=== PATIENT | female | born 1940 | race African-American/Black ===

== ENCOUNTER 2019-12-16 09:35 | Inpatient (IN) ==
[2019-12-16] MEDS ORDERED: Nitroglycerin 0.4 MG TAB.SUBL SL PRN (15:43)
[2019-12-16] MEDS: ALPRAZolam 1 MG TABLET PO SCH (20:24)
[2019-12-16] MEDS: Venlafaxine XR (24 HR) 150 MG CAP.ER.24H PO SCH (20:24)
[2019-12-16] MEDS: Mirtazapine 15 MG TABLET PO SCH (20:24)
[2019-12-16] MEDS: hydrOXYzine pamoate 25 MG CAPSULE PO PRN (20:24)
[2019-12-16] MEDS: Apixaban 5 MG TABLET PO SCH (20:24)
[2019-12-16] MEDS: Nystatin POWDER 30 GM BOTTLE TP SCH (20:58)
[2019-12-17 05:43] LABS: Basophils # 0.1 K/mcL (0.0-0.2); Basophils % 0.5 %; Eosinophils # 1.1 K/mcL (0.0-0.6); Eosinophils % 8.9 %; Hemoglobin 8.2 g/dL (11.5-15.4); Immature Granulocytes % 0.8 % (0-4); Lymphocytes # 1.9 K/mcL (0.6-4.6); Lymphocytes % 14.7 %; Mean Corpuscular HGB Conc 31.5 g/dL (31.6-35.5); Mean Corpuscular Hemoglobin 27.2 pg (28.0-33.3); Mean Corpuscular Volume 86.4 fL (83.0-100.0); Mean Platelet Volume 9.9 fL (9.4-12.4); Monocytes # 1.3 K/mcL (0.0-1.3); Monocytes % 10.4 %; Neutrophils # 8.3 K/mcL (1.6-8.9); Platelet Count 529 K/mcL (140-400); Red Blood Count 3.01 M/mcL (3.82-4.97); Red Cell Distribution Width 16.9 % (11.5-14.5); Segmented Neutrophils % 64.7 %; White Blood Count 12.8 K/mcL (4.3-11.1)
[2019-12-17 06:54] LABS: Calcium 7.9 mg/dL (8.6-10.3); Potassium 3.6 mEq/L (3.5-5.1)
[2019-12-17] MEDS: ALPRAZolam 0.5 MG TABLET PO SCH (09:17)
[2019-12-17] MEDS: Vitamin B Complex/Vit C/Vit E 1 EACH TABLET PO SCH (09:17)
[2019-12-17] MEDS: Aspirin 81 MG TAB.CHEW PO SCH (09:17)
[2019-12-17] MEDS: Vitamin E 200 UNIT (90MG) CAPSULE PO SCH (09:17)
[2019-12-17] MEDS: *HR* Amiodarone 200 MG TABLET PO SCH (09:17)
[2019-12-17] MEDS: Venlafaxine XR (24 HR) 150 MG CAP.ER.24H PO SCH ×2 (09:17→21:07)
[2019-12-17] MEDS: Nystatin POWDER 30 GM BOTTLE TP SCH ×2 (09:18→21:10)
[2019-12-17] MEDS: Apixaban 5 MG TABLET PO SCH ×2 (09:18→21:08)
[2019-12-17] MEDS: allopurinoL 100 MG TABLET PO SCH (09:18)
[2019-12-17] MEDS: allopurinoL 300 MG TABLET PO SCH (09:18)
[2019-12-17] MEDS: Cholecalciferol (D-3) 1,000 UNIT (25MCG) TABLET PO SCH (09:23)
[2019-12-17] MEDS: *HR* OxyCODONE/APAP 5/325 TABLET PO PRN ×2 (10:58→21:07)
[2019-12-17] MEDS: DAPTOmycin 500 MG in 0.9 % Sodium Chloride 100 ML IVPB SCH (15:42)
[2019-12-17] MEDS: Mirtazapine 15 MG TABLET PO SCH (21:07)
[2019-12-17] MEDS: hydrOXYzine pamoate 25 MG CAPSULE PO PRN (21:07)
[2019-12-17] MEDS: ALPRAZolam 1 MG TABLET PO SCH (21:08)
[2019-12-17] MEDS: Furosemide 40 MG TABLET PO PRN (21:08)
[2019-12-18] MEDS: Vitamin E 200 UNIT (90MG) CAPSULE PO SCH (08:51)
[2019-12-18] MEDS: Venlafaxine XR (24 HR) 150 MG CAP.ER.24H PO SCH ×2 (08:52→20:29)
[2019-12-18] MEDS: allopurinoL 100 MG TABLET PO SCH (08:52)
[2019-12-18] MEDS: *HR* Amiodarone 200 MG TABLET PO SCH (08:52)
[2019-12-18] MEDS: Aspirin 81 MG TAB.CHEW PO SCH (08:52)
[2019-12-18] MEDS: Apixaban 5 MG TABLET PO SCH ×2 (08:52→20:29)
[2019-12-18] MEDS: allopurinoL 300 MG TABLET PO SCH (08:52)
[2019-12-18] MEDS: Vitamin B Complex/Vit C/Vit E 1 EACH TABLET PO SCH (08:53)
[2019-12-18] MEDS: Cholecalciferol (D-3) 1,000 UNIT (25MCG) TABLET PO SCH (08:53)
[2019-12-18] MEDS: ALPRAZolam 0.5 MG TABLET PO SCH (08:54)
[2019-12-18] MEDS: Nystatin POWDER 30 GM BOTTLE TP SCH ×2 (08:56→20:29)
[2019-12-18] MEDS: DAPTOmycin 500 MG in 0.9 % Sodium Chloride 100 ML IVPB SCH (14:36)
[2019-12-18] MEDS: Furosemide 40 MG TABLET PO PRN (16:06)
[2019-12-18] MEDS: *HR* OxyCODONE/APAP 5/325 TABLET PO PRN (16:06)
[2019-12-18] MEDS: Mirtazapine 15 MG TABLET PO SCH (20:28)
[2019-12-18] MEDS: Acetaminophen 325 MG TABLET PO PRN (20:28)
[2019-12-18] MEDS: ALPRAZolam 1 MG TABLET PO SCH (20:29)
[2019-12-19] MEDS: Venlafaxine XR (24 HR) 150 MG CAP.ER.24H PO SCH ×2 (08:18→21:04)
[2019-12-19] MEDS: *HR* Amiodarone 200 MG TABLET PO SCH (08:18)
[2019-12-19] MEDS: ALPRAZolam 0.5 MG TABLET PO SCH (08:18)
[2019-12-19] MEDS: Aspirin 81 MG TAB.CHEW PO SCH (08:19)
[2019-12-19] MEDS: Cholecalciferol (D-3) 1,000 UNIT (25MCG) TABLET PO SCH (08:19)
[2019-12-19] MEDS: allopurinoL 300 MG TABLET PO SCH (08:19)
[2019-12-19] MEDS: Vitamin E 200 UNIT (90MG) CAPSULE PO SCH (08:19)
[2019-12-19] MEDS: Vitamin B Complex/Vit C/Vit E 1 EACH TABLET PO SCH (08:19)
[2019-12-19] MEDS: Apixaban 5 MG TABLET PO SCH ×2 (08:19→21:04)
[2019-12-19] MEDS: allopurinoL 100 MG TABLET PO SCH (08:19)
[2019-12-19] MEDS: Nystatin POWDER 30 GM BOTTLE TP SCH ×2 (08:25→21:45)
[2019-12-19 09:10] LABS: Hematocrit 27.7 % (35.3-44.9); Hemoglobin 8.5 g/dL (11.5-15.4); Mean Corpuscular HGB Conc 30.7 g/dL (31.6-35.5); Mean Corpuscular Volume 87.9 fL (83.0-100.0); Mean Platelet Volume 9.7 fL (9.4-12.4); Platelet Count 507 K/mcL (140-400); Red Blood Count 3.15 M/mcL (3.82-4.97); Red Cell Distribution Width 17.2 % (11.5-14.5); White Blood Count 11.1 K/mcL (4.3-11.1)
[2019-12-19 09:30] LABS: Calcium 8.3 mg/dL (8.6-10.3); Potassium 3.5 mEq/L (3.5-5.1)
[2019-12-19] MEDS: DAPTOmycin 500 MG in 0.9 % Sodium Chloride 100 ML IVPB SCH (14:21)
[2019-12-19] MEDS: Furosemide 20 MG TABLET PO SCH (16:27)
[2019-12-19] MEDS: Mirtazapine 15 MG TABLET PO SCH (21:04)
[2019-12-19] MEDS: ALPRAZolam 1 MG TABLET PO SCH (21:04)
[2019-12-19] MEDS: *HR* OxyCODONE/APAP 5/325 TABLET PO PRN (21:07)
[2019-12-20] MEDS: Venlafaxine XR (24 HR) 150 MG CAP.ER.24H PO SCH ×2 (08:10→20:48)
[2019-12-20] MEDS: lisinopriL 20 MG TABLET PO SCH (08:10)
[2019-12-20] MEDS: Vitamin B Complex/Vit C/Vit E 1 EACH TABLET PO SCH (08:10)
[2019-12-20] MEDS: ALPRAZolam 0.5 MG TABLET PO SCH (08:10)
[2019-12-20] MEDS: Vitamin E 200 UNIT (90MG) CAPSULE PO SCH (08:10)
[2019-12-20] MEDS: Apixaban 5 MG TABLET PO SCH ×2 (08:10→20:49)
[2019-12-20] MEDS: allopurinoL 300 MG TABLET PO SCH (08:10)
[2019-12-20] MEDS: Cholecalciferol (D-3) 1,000 UNIT (25MCG) TABLET PO SCH (08:10)
[2019-12-20] MEDS: *HR* Amiodarone 200 MG TABLET PO SCH (08:11)
[2019-12-20] MEDS: allopurinoL 100 MG TABLET PO SCH (08:11)
[2019-12-20] MEDS: Furosemide 20 MG TABLET PO SCH ×2 (08:11→16:09)
[2019-12-20] MEDS: Aspirin 81 MG TAB.CHEW PO SCH (08:11)
[2019-12-20] MEDS: Nystatin POWDER 30 GM BOTTLE TP SCH ×2 (08:13→20:49)
[2019-12-20 12:57] LABS: Creatine Kinase 62 Units/L (30-223)
[2019-12-20] MEDS: DAPTOmycin 500 MG in 0.9 % Sodium Chloride 100 ML IVPB SCH (14:28)
[2019-12-20] MEDS: *HR* OxyCODONE/APAP 5/325 TABLET PO PRN (14:34)
[2019-12-20 17:36] LABS: C-Reactive Protein 57 mg/L (Less than 10)
[2019-12-20] MEDS: ALPRAZolam 1 MG TABLET PO SCH (20:49)
[2019-12-20] MEDS: hydrOXYzine pamoate 25 MG CAPSULE PO PRN (20:49)
[2019-12-20] MEDS: Mirtazapine 15 MG TABLET PO SCH (20:49)
[2019-12-21] MEDS: Aspirin 81 MG TAB.CHEW PO SCH (08:20)
[2019-12-21] MEDS: Apixaban 5 MG TABLET PO SCH ×2 (08:20→21:22)
[2019-12-21] MEDS: allopurinoL 100 MG TABLET PO SCH (08:20)
[2019-12-21] MEDS: Venlafaxine XR (24 HR) 150 MG CAP.ER.24H PO SCH ×2 (08:20→21:21)
[2019-12-21] MEDS: Vitamin B Complex/Vit C/Vit E 1 EACH TABLET PO SCH (08:20)
[2019-12-21] MEDS: lisinopriL 20 MG TABLET PO SCH (08:20)
[2019-12-21] MEDS: ALPRAZolam 0.5 MG TABLET PO SCH (08:20)
[2019-12-21] MEDS: Cholecalciferol (D-3) 1,000 UNIT (25MCG) TABLET PO SCH (08:21)
[2019-12-21] MEDS: Nystatin POWDER 30 GM BOTTLE TP SCH ×2 (08:21→21:29)
[2019-12-21] MEDS: *HR* Amiodarone 200 MG TABLET PO SCH (08:21)
[2019-12-21] MEDS: Furosemide 20 MG TABLET PO SCH ×2 (08:21→16:12)
[2019-12-21] MEDS: allopurinoL 300 MG TABLET PO SCH (08:21)
[2019-12-21] MEDS: Vitamin E 200 UNIT (90MG) CAPSULE PO SCH (08:21)
[2019-12-21 14:11] LABS: Adenovirus Not Detected (Not Detect); Coronavirus 229E Not Detected (Not Detect); Coronavirus HKU1 Not Detected (Not Detect)
[2019-12-21 14:12] LABS: Bordetella Pertussis Not Detected (Not Detect); Chlamydophila pneumoniae Not Detected (Not Detect); Coronavirus NL63 Not Detected (Not Detect); Coronavirus OC43 Not Detected (Not Detect); Human Metapneumovirus Not Detected (Not Detect); Human Rhinovirus/Enterovirus Not Detected (Not Detect); Influenza A Subtype 2009 H1 Not Detected (Not Detect); Influenza B Not Detected (Not Detect); Mycoplasma pneumoniae Not Detected (Not Detect); Parainfluenza Virus 1 Not Detected (Not Detect); Parainfluenza Virus 2 Not Detected (Not Detect); Parainfluenza Virus 3 Not Detected (Not Detect); Parainfluenza Virus 4 Not Detected (Not Detect); Respiratory Syncytial Virus Not Detected (Not Detect); SARS-CoV-2 Not Detected (Not Detect)
[2019-12-21] MEDS: DAPTOmycin 500 MG in 0.9 % Sodium Chloride 100 ML IVPB SCH (14:22)
[2019-12-21] MEDS: ALPRAZolam 1 MG TABLET PO SCH (21:22)
[2019-12-21] MEDS: Mirtazapine 15 MG TABLET PO SCH (21:22)
[2019-12-22] MEDS: *HR* OxyCODONE/APAP 5/325 TABLET PO PRN ×2 (01:44→21:02)
[2019-12-22] MEDS: Vitamin E 200 UNIT (90MG) CAPSULE PO SCH (08:54)
[2019-12-22] MEDS: Aspirin 81 MG TAB.CHEW PO SCH (08:55)
[2019-12-22] MEDS: allopurinoL 300 MG TABLET PO SCH (08:55)
[2019-12-22] MEDS: Cholecalciferol (D-3) 1,000 UNIT (25MCG) TABLET PO SCH (08:55)
[2019-12-22] MEDS: ALPRAZolam 0.5 MG TABLET PO SCH (08:55)
[2019-12-22] MEDS: Furosemide 20 MG TABLET PO SCH ×2 (08:55→16:34)
[2019-12-22] MEDS: Venlafaxine XR (24 HR) 150 MG CAP.ER.24H PO SCH ×2 (08:55→20:34)
[2019-12-22] MEDS: lisinopriL 20 MG TABLET PO SCH (08:55)
[2019-12-22] MEDS: Vitamin B Complex/Vit C/Vit E 1 EACH TABLET PO SCH (08:55)
[2019-12-22] MEDS: allopurinoL 100 MG TABLET PO SCH (08:55)
[2019-12-22] MEDS: *HR* Amiodarone 200 MG TABLET PO SCH (08:55)
[2019-12-22] MEDS: Apixaban 5 MG TABLET PO SCH ×2 (08:55→20:34)
[2019-12-22] MEDS: Nystatin POWDER 30 GM BOTTLE TP SCH ×2 (08:56→20:35)
[2019-12-22] MEDS: DAPTOmycin 500 MG in 0.9 % Sodium Chloride 100 ML IVPB SCH (16:33)
[2019-12-22] MEDS: Mirtazapine 15 MG TABLET PO SCH (20:34)
[2019-12-22] MEDS: ALPRAZolam 1 MG TABLET PO SCH (20:34)
[2019-12-23] MEDS: Aspirin 81 MG TAB.CHEW PO SCH (08:02)
[2019-12-23] MEDS: allopurinoL 100 MG TABLET PO SCH (08:02)
[2019-12-23] MEDS: lisinopriL 20 MG TABLET PO SCH (08:02)
[2019-12-23] MEDS: Vitamin B Complex/Vit C/Vit E 1 EACH TABLET PO SCH (08:02)
[2019-12-23] MEDS: Cholecalciferol (D-3) 1,000 UNIT (25MCG) TABLET PO SCH (08:02)
[2019-12-23] MEDS: allopurinoL 300 MG TABLET PO SCH (08:02)
[2019-12-23] MEDS: Vitamin E 200 UNIT (90MG) CAPSULE PO SCH (08:02)
[2019-12-23] MEDS: *HR* Amiodarone 200 MG TABLET PO SCH (08:03)
[2019-12-23] MEDS: Nystatin POWDER 30 GM BOTTLE TP SCH ×2 (08:03→20:44)
[2019-12-23] MEDS: ALPRAZolam 0.5 MG TABLET PO SCH (08:03)
[2019-12-23] MEDS: Furosemide 20 MG TABLET PO SCH ×2 (08:03→16:52)
[2019-12-23] MEDS: Venlafaxine XR (24 HR) 150 MG CAP.ER.24H PO SCH ×2 (08:03→20:43)
[2019-12-23] MEDS: Apixaban 5 MG TABLET PO SCH ×2 (08:03→20:44)
[2019-12-23] MEDS: DAPTOmycin 500 MG in 0.9 % Sodium Chloride 100 ML IVPB SCH (15:14)
[2019-12-23] MEDS: Mirtazapine 15 MG TABLET PO SCH (20:44)
[2019-12-23] MEDS: ALPRAZolam 1 MG TABLET PO SCH (20:44)
[2019-12-24] MEDS: *HR* OxyCODONE/APAP 5/325 TABLET PO PRN (02:09)
[2019-12-24] MEDS: Vitamin E 200 UNIT (90MG) CAPSULE PO SCH (07:40)
[2019-12-24] MEDS: Vitamin B Complex/Vit C/Vit E 1 EACH TABLET PO SCH (07:40)
[2019-12-24] MEDS: Aspirin 81 MG TAB.CHEW PO SCH (07:40)
[2019-12-24] MEDS: *HR* Amiodarone 200 MG TABLET PO SCH (07:40)
[2019-12-24] MEDS: allopurinoL 300 MG TABLET PO SCH (07:40)
[2019-12-24] MEDS: Apixaban 5 MG TABLET PO SCH ×2 (07:41→20:44)
[2019-12-24] MEDS: Cholecalciferol (D-3) 1,000 UNIT (25MCG) TABLET PO SCH (07:41)
[2019-12-24] MEDS: ALPRAZolam 0.5 MG TABLET PO SCH (07:41)
[2019-12-24] MEDS: lisinopriL 20 MG TABLET PO SCH (07:41)
[2019-12-24] MEDS: allopurinoL 100 MG TABLET PO SCH (07:41)
[2019-12-24] MEDS: Venlafaxine XR (24 HR) 150 MG CAP.ER.24H PO SCH ×2 (07:41→20:44)
[2019-12-24] MEDS: Furosemide 20 MG TABLET PO SCH ×2 (07:42→16:03)
[2019-12-24] MEDS: Nystatin POWDER 30 GM BOTTLE TP SCH ×2 (07:42→20:45)
[2019-12-24] MEDS: DAPTOmycin 500 MG in 0.9 % Sodium Chloride 100 ML IVPB SCH (16:03)
[2019-12-24] MEDS: Acetaminophen 325 MG TABLET PO PRN (17:49)
[2019-12-24] MEDS: ALPRAZolam 1 MG TABLET PO SCH (20:44)
[2019-12-24] MEDS: Mirtazapine 15 MG TABLET PO SCH (20:44)
[2019-12-25] MEDS: ALPRAZolam 0.5 MG TABLET PO SCH (08:40)
[2019-12-25] MEDS: Vitamin B Complex/Vit C/Vit E 1 EACH TABLET PO SCH (08:41)
[2019-12-25] MEDS: Vitamin E 200 UNIT (90MG) CAPSULE PO SCH (08:41)
[2019-12-25] MEDS: Furosemide 20 MG TABLET PO SCH ×2 (08:41→15:54)
[2019-12-25] MEDS: Venlafaxine XR (24 HR) 150 MG CAP.ER.24H PO SCH ×2 (08:41→21:10)
[2019-12-25] MEDS: lisinopriL 20 MG TABLET PO SCH (08:41)
[2019-12-25] MEDS: Apixaban 5 MG TABLET PO SCH ×2 (08:41→21:10)
[2019-12-25] MEDS: Cholecalciferol (D-3) 1,000 UNIT (25MCG) TABLET PO SCH (08:42)
[2019-12-25] MEDS: allopurinoL 100 MG TABLET PO SCH (08:42)
[2019-12-25] MEDS: Aspirin 81 MG TAB.CHEW PO SCH (08:42)
[2019-12-25] MEDS: *HR* Amiodarone 200 MG TABLET PO SCH (08:42)
[2019-12-25] MEDS: allopurinoL 300 MG TABLET PO SCH (08:42)
[2019-12-25] MEDS: Nystatin POWDER 30 GM BOTTLE TP SCH ×2 (08:43→23:21)
[2019-12-25] MEDS: DAPTOmycin 500 MG in 0.9 % Sodium Chloride 100 ML IVPB SCH (13:31)
[2019-12-25] MEDS: Mirtazapine 15 MG TABLET PO SCH (21:10)
[2019-12-25] MEDS: ALPRAZolam 1 MG TABLET PO SCH (21:10)
[2019-12-25] MEDS: *HR* OxyCODONE/APAP 5/325 TABLET PO PRN (21:11)
[2019-12-26 00:33] LABS: Bilirubin,Urine Negative (Negative); Blood,Urine Negative (Negative); Clarity,Urine Cloudy (Clear); Color,Urine Yellow (Yellow); Glucose,Urine (UA) Normal (Normal); Ketones,Urine Negative (Negative); Leukocyte Esterase,Urine Moderate (Negative); Nitrite,Urine Negative (Negative); PH,Urine 5.5 pH Units (5.0-8.0); Protein,Urine Negative (Neg-Trace); Urobilinogen,Urine Normal (Normal)
[2019-12-26 00:55] LABS: Bacteria,Urine Many per hpf (None-Few)
[2019-12-26 00:56] LABS: RBC,Urine 0-3 per hpf (0-3); WBC,Urine 50-100 per hpf (0-3)
[2019-12-26 01:08] LABS: Renal Epithelial Cells,Urine Few per hpf (None-Few); Transitional Epi Cells,Urine Few per hpf (None-Few)
[2019-12-26 01:09] LABS: Squamous Epithelial Cell,Urine Moderate per hpf (None-Few)
[2019-12-26] MEDS: Apixaban 5 MG TABLET PO SCH (08:16)
[2019-12-26] MEDS: lisinopriL 20 MG TABLET PO SCH (08:16)
[2019-12-26] MEDS: Furosemide 20 MG TABLET PO SCH ×2 (08:16→16:02)
[2019-12-26] MEDS: allopurinoL 300 MG TABLET PO SCH (08:16)
[2019-12-26] MEDS: *HR* Amiodarone 200 MG TABLET PO SCH (08:16)
[2019-12-26] MEDS: Venlafaxine XR (24 HR) 150 MG CAP.ER.24H PO SCH ×2 (08:16→20:34)
[2019-12-26] MEDS: Vitamin B Complex/Vit C/Vit E 1 EACH TABLET PO SCH (08:16)
[2019-12-26] MEDS: ALPRAZolam 0.5 MG TABLET PO SCH (08:16)
[2019-12-26] MEDS: allopurinoL 100 MG TABLET PO SCH (08:16)
[2019-12-26] MEDS: Vitamin E 200 UNIT (90MG) CAPSULE PO SCH (08:16)
[2019-12-26] MEDS: Nystatin POWDER 30 GM BOTTLE TP SCH ×2 (08:17→20:35)
[2019-12-26] MEDS: Cholecalciferol (D-3) 1,000 UNIT (25MCG) TABLET PO SCH (08:17)
[2019-12-26] MEDS: Aspirin 81 MG TAB.CHEW PO SCH (08:17)
[2019-12-26 08:41] LABS: Basophils # 0.1 K/mcL (0.0-0.2); Basophils % 0.4 %; Eosinophils # 0.9 K/mcL (0.0-0.6); Eosinophils % 7.1 %; Hematocrit 28.7 % (35.3-44.9); Immature Granulocytes % 0.7 % (0-4); Lymphocytes % 16.7 %; Mean Corpuscular HGB Conc 31.4 g/dL (31.6-35.5); Mean Corpuscular Hemoglobin 26.5 pg (28.0-33.3); Mean Corpuscular Volume 84.7 fL (83.0-100.0); Mean Platelet Volume 9.5 fL (9.4-12.4); Monocytes % 8.3 %; Platelet Count 420 K/mcL (140-400); Red Blood Count 3.39 M/mcL (3.82-4.97); Segmented Neutrophils % 66.8 %; White Blood Count 12.2 K/mcL (4.3-11.1)
[2019-12-26 09:02] LABS: Neutrophils # 8.2 K/mcL (1.6-8.9)
[2019-12-26 09:17] LABS: Albumin 2.5 g/dL (3.5-5.7); Albumin/Globulin Ratio 0.7 (1.1-2.2); Bilirubin,Total 0.3 mg/dL (0.3-1.0); Calcium 8.2 mg/dL (8.6-10.3); Creatine Kinase 121 Units/L (30-223); Globulin 3.5 g/dL (2.4-3.5); Potassium 3.5 mEq/L (3.5-5.1)
[2019-12-26 13:04] LABS: C-Reactive Protein 132 mg/L (Less than 10)
[2019-12-26] MEDS: DAPTOmycin 500 MG in 0.9 % Sodium Chloride 100 ML IVPB SCH (16:02)
[2019-12-26] MEDS: *HR* OxyCODONE/APAP 5/325 TABLET PO PRN (16:07)
[2019-12-26] MEDS: Mirtazapine 15 MG TABLET PO SCH (20:34)
[2019-12-26] MEDS: ALPRAZolam 1 MG TABLET PO SCH (20:34)
[2019-12-27] MEDS: Vitamin E 200 UNIT (90MG) CAPSULE PO SCH (09:02)
[2019-12-27] MEDS: *HR* Amiodarone 200 MG TABLET PO SCH (09:03)
[2019-12-27] MEDS: Cholecalciferol (D-3) 1,000 UNIT (25MCG) TABLET PO SCH (09:03)
[2019-12-27] MEDS: Aspirin 81 MG TAB.CHEW PO SCH (09:03)
[2019-12-27] MEDS: Vitamin B Complex/Vit C/Vit E 1 EACH TABLET PO SCH (09:03)
[2019-12-27] MEDS: lisinopriL 20 MG TABLET PO SCH (09:03)
[2019-12-27] MEDS: Venlafaxine XR (24 HR) 150 MG CAP.ER.24H PO SCH ×2 (09:03→19:59)
[2019-12-27] MEDS: allopurinoL 100 MG TABLET PO SCH (09:03)
[2019-12-27] MEDS: ALPRAZolam 0.5 MG TABLET PO SCH (09:03)
[2019-12-27] MEDS: allopurinoL 300 MG TABLET PO SCH (09:03)
[2019-12-27] MEDS: Furosemide 20 MG TABLET PO SCH ×2 (09:03→17:24)
[2019-12-27] MEDS: Nystatin POWDER 30 GM BOTTLE TP SCH ×2 (09:04→21:40)
[2019-12-27] MEDS: DAPTOmycin 500 MG in 0.9 % Sodium Chloride 100 ML IVPB SCH (15:41)
[2019-12-27] MEDS: ALPRAZolam 1 MG TABLET PO SCH (19:59)
[2019-12-27] MEDS: Mirtazapine 15 MG TABLET PO SCH (19:59)
[2019-12-28 05:23] LABS: Adenovirus Not Detected (Not Detect); Bordetella Pertussis Not Detected (Not Detect); Chlamydophila pneumoniae Not Detected (Not Detect); Coronavirus 229E Not Detected (Not Detect); Coronavirus HKU1 Not Detected (Not Detect); Coronavirus NL63 Not Detected (Not Detect); Coronavirus OC43 Not Detected (Not Detect); Human Metapneumovirus Not Detected (Not Detect); Human Rhinovirus/Enterovirus Not Detected (Not Detect); Influenza A Subtype 2009 H1 Not Detected (Not Detect); Influenza B Not Detected (Not Detect); Mycoplasma pneumoniae Not Detected (Not Detect); Parainfluenza Virus 1 Not Detected (Not Detect); Parainfluenza Virus 2 Not Detected (Not Detect); Parainfluenza Virus 3 Not Detected (Not Detect); Parainfluenza Virus 4 Not Detected (Not Detect); Respiratory Syncytial Virus Not Detected (Not Detect); SARS-CoV-2 Not Detected (Not Detect)
[2019-12-28] MEDS: cefTRIAXone 1,000 MG in 0.9 % Sodium Chloride Mini Bag 100 ML IVPB SCH (08:26)
[2019-12-28] MEDS: ALPRAZolam 0.5 MG TABLET PO SCH (08:26)
[2019-12-28] MEDS: Venlafaxine XR (24 HR) 150 MG CAP.ER.24H PO SCH ×2 (08:26→20:34)
[2019-12-28] MEDS: *HR* Amiodarone 200 MG TABLET PO SCH (08:26)
[2019-12-28] MEDS: Vitamin E 200 UNIT (90MG) CAPSULE PO SCH (08:27)
[2019-12-28] MEDS: Vitamin B Complex/Vit C/Vit E 1 EACH TABLET PO SCH (08:27)
[2019-12-28] MEDS: Cholecalciferol (D-3) 1,000 UNIT (25MCG) TABLET PO SCH (08:27)
[2019-12-28] MEDS: Furosemide 20 MG TABLET PO SCH ×2 (08:27→20:34)
[2019-12-28] MEDS: Nystatin POWDER 30 GM BOTTLE TP SCH ×2 (08:27→21:07)
[2019-12-28] MEDS: Aspirin 81 MG TAB.CHEW PO SCH (08:28)
[2019-12-28] MEDS: allopurinoL 100 MG TABLET PO SCH (08:28)
[2019-12-28] MEDS: allopurinoL 300 MG TABLET PO SCH (08:28)
[2019-12-28 08:36] LABS: Albumin 2.6 g/dL (3.5-5.7); Albumin/Globulin Ratio 0.8 (1.1-2.2); Bilirubin,Total 0.4 mg/dL (0.3-1.0); Calcium 8.3 mg/dL (8.6-10.3); Globulin 3.4 g/dL (2.4-3.5); Magnesium 1.3 mg/dL (1.6-2.6); Potassium 3.5 mEq/L (3.5-5.1)
[2019-12-28 08:53] LABS: Basophils # 0.1 K/mcL (0.0-0.2); Basophils % 0.6 %; Eosinophils % 8.3 %; Hemoglobin 9.3 g/dL (11.5-15.4); Immature Granulocytes % 0.5 % (0-4); Lymphocytes # 1.9 K/mcL (0.6-4.6); Lymphocytes % 16.6 %; Mean Corpuscular HGB Conc 32.1 g/dL (31.6-35.5); Mean Corpuscular Hemoglobin 26.5 pg (28.0-33.3); Mean Corpuscular Volume 82.6 fL (83.0-100.0); Mean Platelet Volume 9.5 fL (9.4-12.4); Monocytes # 1.1 K/mcL (0.0-1.3); Monocytes % 9.6 %; Neutrophils # 7.3 K/mcL (1.6-8.9); Platelet Count 420 K/mcL (140-400); Red Blood Count 3.51 M/mcL (3.82-4.97); Red Cell Distribution Width 16.7 % (11.5-14.5); Segmented Neutrophils % 64.4 %; White Blood Count 11.4 K/mcL (4.3-11.1)
[2019-12-28] MEDS: hydrOXYzine pamoate 25 MG CAPSULE PO PRN (20:33)
[2019-12-28] MEDS: ALPRAZolam 1 MG TABLET PO SCH (20:34)
[2019-12-28] MEDS: Mirtazapine 15 MG TABLET PO SCH (20:34)
[2019-12-28] MEDS: DAPTOmycin 500 MG in 0.9 % Sodium Chloride 100 ML IVPB SCH (20:34)
[2019-12-29] MEDS: DAPTOmycin 500 MG in 0.9 % Sodium Chloride 100 ML IVPB SCH ×2 (08:59→17:28)
[2019-12-29] MEDS: Aspirin 81 MG TAB.CHEW PO SCH (09:08)
[2019-12-29] MEDS: *HR* Amiodarone 200 MG TABLET PO SCH (09:08)
[2019-12-29] MEDS: allopurinoL 300 MG TABLET PO SCH (09:08)
[2019-12-29] MEDS: Vitamin E 200 UNIT (90MG) CAPSULE PO SCH (09:08)
[2019-12-29] MEDS: *HR* OxyCODONE/APAP 5/325 TABLET PO PRN (09:09)
[2019-12-29] MEDS: Venlafaxine XR (24 HR) 150 MG CAP.ER.24H PO SCH ×2 (09:09→21:22)
[2019-12-29] MEDS: ALPRAZolam 0.5 MG TABLET PO SCH (09:09)
[2019-12-29] MEDS: Cholecalciferol (D-3) 1,000 UNIT (25MCG) TABLET PO SCH (09:09)
[2019-12-29] MEDS: Vitamin B Complex/Vit C/Vit E 1 EACH TABLET PO SCH (09:09)
[2019-12-29] MEDS: allopurinoL 100 MG TABLET PO SCH (09:09)
[2019-12-29] MEDS: cefTRIAXone 1,000 MG in 0.9 % Sodium Chloride Mini Bag 100 ML IVPB SCH (09:12)
[2019-12-29] MEDS: Nystatin POWDER 30 GM BOTTLE TP SCH ×2 (09:14→21:22)
[2019-12-29] MEDS: Furosemide 20 MG TABLET PO SCH ×2 (09:34→17:27)
[2019-12-29] MEDS: lisinopriL 20 MG TABLET PO SCH (09:35)
[2019-12-29] MEDS: Mirtazapine 15 MG TABLET PO SCH (21:22)
[2019-12-29] MEDS: ALPRAZolam 1 MG TABLET PO SCH (21:22)
[2019-12-29] MEDS: Apixaban 5 MG TABLET PO SCH (21:22)
[2019-12-30] MEDS: *HR* OxyCODONE/APAP 5/325 TABLET PO PRN ×2 (03:38→13:54)
[2019-12-30] MEDS: cefTRIAXone 1,000 MG in 0.9 % Sodium Chloride Mini Bag 100 ML IVPB SCH (10:47)
[2019-12-30] MEDS: Apixaban 5 MG TABLET PO SCH ×2 (10:48→20:59)
[2019-12-30] MEDS: ALPRAZolam 0.5 MG TABLET PO SCH (10:49)
[2019-12-30] MEDS: Venlafaxine XR (24 HR) 150 MG CAP.ER.24H PO SCH ×2 (10:49→20:59)
[2019-12-30] MEDS: Vitamin B Complex/Vit C/Vit E 1 EACH TABLET PO SCH (10:49)
[2019-12-30] MEDS: Vitamin E 200 UNIT (90MG) CAPSULE PO SCH (10:49)
[2019-12-30] MEDS: allopurinoL 300 MG TABLET PO SCH (10:49)
[2019-12-30] MEDS: Aspirin 81 MG TAB.CHEW PO SCH (10:49)
[2019-12-30] MEDS: *HR* Amiodarone 200 MG TABLET PO SCH (10:50)
[2019-12-30] MEDS: allopurinoL 100 MG TABLET PO SCH (10:50)
[2019-12-30] MEDS: Furosemide 20 MG TABLET PO SCH ×2 (10:50→16:52)
[2019-12-30] MEDS: Cholecalciferol (D-3) 1,000 UNIT (25MCG) TABLET PO SCH (10:50)
[2019-12-30] MEDS: Nystatin POWDER 30 GM BOTTLE TP SCH ×2 (10:50→21:02)
[2019-12-30] MEDS: DAPTOmycin 500 MG in 0.9 % Sodium Chloride 100 ML IVPB SCH (13:58)
[2019-12-30] MEDS: ALPRAZolam 1 MG TABLET PO SCH (20:58)
[2019-12-30] MEDS: Mirtazapine 15 MG TABLET PO SCH (20:59)
[2019-12-31] MEDS: Venlafaxine XR (24 HR) 150 MG CAP.ER.24H PO SCH ×2 (08:04→22:20)
[2019-12-31] MEDS: Apixaban 5 MG TABLET PO SCH ×2 (08:04→22:21)
[2019-12-31] MEDS: Vitamin E 200 UNIT (90MG) CAPSULE PO SCH (08:04)
[2019-12-31] MEDS: lisinopriL 20 MG TABLET PO SCH (08:04)
[2019-12-31] MEDS: *HR* Amiodarone 200 MG TABLET PO SCH (08:04)
[2019-12-31] MEDS: Aspirin 81 MG TAB.CHEW PO SCH (08:04)
[2019-12-31] MEDS: Cholecalciferol (D-3) 1,000 UNIT (25MCG) TABLET PO SCH (08:05)
[2019-12-31] MEDS: Furosemide 20 MG TABLET PO SCH ×2 (08:05→16:29)
[2019-12-31] MEDS: ALPRAZolam 0.5 MG TABLET PO SCH (08:05)
[2019-12-31] MEDS: allopurinoL 300 MG TABLET PO SCH (08:05)
[2019-12-31] MEDS: allopurinoL 100 MG TABLET PO SCH (08:05)
[2019-12-31] MEDS: Vitamin B Complex/Vit C/Vit E 1 EACH TABLET PO SCH (08:05)
[2019-12-31] MEDS: cefTRIAXone 1,000 MG in 0.9 % Sodium Chloride Mini Bag 100 ML IVPB SCH (08:05)
[2019-12-31] MEDS: DAPTOmycin 500 MG in 0.9 % Sodium Chloride 100 ML IVPB SCH (14:22)
[2019-12-31] MEDS: Nystatin POWDER 30 GM BOTTLE TP SCH ×2 (14:28→22:22)
[2019-12-31] MEDS: Mirtazapine 15 MG TABLET PO SCH (22:21)
[2019-12-31] MEDS: ALPRAZolam 1 MG TABLET PO SCH (22:21)
[2019-12-31] MEDS: Lactobacillus 1 EACH CAP.SPRINK PO SCH (22:21)
[2020-01-01] MEDS: Lactobacillus 1 EACH CAP.SPRINK PO SCH ×3 (01:00→19:48)
[2020-01-01] MEDS: Apixaban 5 MG TABLET PO SCH ×3 (01:01→19:48)
[2020-01-01] MEDS: Mirtazapine 15 MG TABLET PO SCH ×2 (01:01→19:48)
[2020-01-01] MEDS: Venlafaxine XR (24 HR) 150 MG CAP.ER.24H PO SCH ×3 (01:01→22:37)
[2020-01-01] MEDS: Nystatin POWDER 30 GM BOTTLE TP SCH ×3 (01:01→19:49)
[2020-01-01] MEDS: ALPRAZolam 1 MG TABLET PO SCH ×2 (01:02→19:48)
[2020-01-01 08:59] LABS: ABG Base Excess 1 mEq/L (-2 to 3); ABG HCO3 25 mEq/L (21-27); ABG Oxygen Saturation 96 % (95-98); ABG PCO2 35 mmHg (35-45); ABG PH 7.45 pH Units (7.32-7.45); ABG PO2 80 mmHg (85-104); ABG TCO2 26 mEq/L (20-26)
[2020-01-01] MEDS: cefTRIAXone 1,000 MG in 0.9 % Sodium Chloride Mini Bag 100 ML IVPB SCH (09:40)
[2020-01-01] MEDS: allopurinoL 100 MG TABLET PO SCH (09:41)
[2020-01-01] MEDS: Cholecalciferol (D-3) 1,000 UNIT (25MCG) TABLET PO SCH (09:41)
[2020-01-01] MEDS: Vitamin E 200 UNIT (90MG) CAPSULE PO SCH (09:42)
[2020-01-01] MEDS: Aspirin 81 MG TAB.CHEW PO SCH (09:42)
[2020-01-01] MEDS: Vitamin B Complex/Vit C/Vit E 1 EACH TABLET PO SCH (09:42)
[2020-01-01] MEDS: ALPRAZolam 0.5 MG TABLET PO SCH (09:42)
[2020-01-01] MEDS: Furosemide 20 MG TABLET PO SCH ×2 (09:42→17:38)
[2020-01-01] MEDS: allopurinoL 300 MG TABLET PO SCH (09:42)
[2020-01-01] MEDS: *HR* Amiodarone 200 MG TABLET PO SCH (09:43)
[2020-01-01] MEDS: lisinopriL 20 MG TABLET PO SCH (09:43)
[2020-01-01] MEDS: DAPTOmycin 500 MG in 0.9 % Sodium Chloride 100 ML IVPB SCH (14:13)
[2020-01-01] MEDS: hydrOXYzine pamoate 25 MG CAPSULE PO PRN (19:45)
[2020-01-01] MEDS: *HR* OxyCODONE/APAP 5/325 TABLET PO PRN (19:46)
[2020-01-02 07:29] LABS: Basophils # 0.1 K/mcL (0.0-0.2); Basophils % 0.6 %; Eosinophils # 1.5 K/mcL (0.0-0.6); Eosinophils % 10.4 %; Hematocrit 28.4 % (35.3-44.9); Hemoglobin 8.9 g/dL (11.5-15.4); Lymphocytes # 2.4 K/mcL (0.6-4.6); Mean Corpuscular HGB Conc 31.3 g/dL (31.6-35.5); Mean Corpuscular Hemoglobin 26.1 pg (28.0-33.3); Mean Corpuscular Volume 83.3 fL (83.0-100.0); Monocytes % 6.9 %; Platelet Count 484 K/mcL (140-400); Red Blood Count 3.41 M/mcL (3.82-4.97); Red Cell Distribution Width 17.1 % (11.5-14.5); Segmented Neutrophils % 64.1 %; White Blood Count 14.7 K/mcL (4.3-11.1)
[2020-01-02 07:35] LABS: Alanine Aminotransferase 20 Units/L (7-52); Albumin 2.5 g/dL (3.5-5.7); Albumin/Globulin Ratio 0.7 (1.1-2.2); Alkaline Phosphatase 88 Units/L (34-104); Aspartate Amino Transferase 24 Units/L (13-39); BUN/Creatinine Ratio 22 (6-26); Bilirubin,Total 0.3 mg/dL (0.3-1.0); Blood Urea Nitrogen 22 mg/dL (8-23); Calcium 8.4 mg/dL (8.6-10.3); Carbon Dioxide 27 mEq/L (23-29); Chloride 103 mEq/L (98-107); Globulin 3.4 g/dL (2.4-3.5); Glucose 81 mg/dL (70-105); Osmolality,Calculated 292 (280-300); Potassium 3.1 mEq/L (3.5-5.1); Sodium 140 mEq/L (136-145); Total Protein 5.9 g/dL (6.4-8.9); eGFR For African Americans > 60 (> 60); eGFR For Non-African Americans 53 (> 60)
[2020-01-02 07:49] LABS: Neutrophils # 9.4 K/mcL (1.6-8.9)
[2020-01-02] MEDS: Vitamin E 200 UNIT (90MG) CAPSULE PO SCH (09:29)
[2020-01-02] MEDS: Nystatin POWDER 30 GM BOTTLE TP SCH ×2 (09:29→20:18)
[2020-01-02] MEDS: allopurinoL 100 MG TABLET PO SCH (09:29)
[2020-01-02] MEDS: Apixaban 5 MG TABLET PO SCH ×2 (09:29→20:18)
[2020-01-02] MEDS: ALPRAZolam 0.5 MG TABLET PO SCH (09:29)
[2020-01-02] MEDS: Aspirin 81 MG TAB.CHEW PO SCH (09:29)
[2020-01-02] MEDS: lisinopriL 20 MG TABLET PO SCH (09:30)
[2020-01-02] MEDS: Cholecalciferol (D-3) 1,000 UNIT (25MCG) TABLET PO SCH (09:30)
[2020-01-02] MEDS: Venlafaxine XR (24 HR) 150 MG CAP.ER.24H PO SCH ×2 (09:30→20:18)
[2020-01-02] MEDS: *HR* OxyCODONE/APAP 5/325 TABLET PO PRN (09:30)
[2020-01-02] MEDS: Furosemide 20 MG TABLET PO SCH ×2 (09:30→18:21)
[2020-01-02] MEDS: Vitamin B Complex/Vit C/Vit E 1 EACH TABLET PO SCH (09:30)
[2020-01-02] MEDS: Lactobacillus 1 EACH CAP.SPRINK PO SCH ×2 (09:31→20:18)
[2020-01-02] MEDS: *HR* Amiodarone 200 MG TABLET PO SCH (09:31)
[2020-01-02] MEDS: allopurinoL 300 MG TABLET PO SCH (09:31)
[2020-01-02 12:43] LABS: C-Reactive Protein 147 mg/L (Less than 10)
[2020-01-02] MEDS: DAPTOmycin 500 MG in 0.9 % Sodium Chloride 100 ML IVPB SCH (15:10)
[2020-01-02] MEDS: Mirtazapine 15 MG TABLET PO SCH (20:18)
[2020-01-02] MEDS: hydrOXYzine pamoate 25 MG CAPSULE PO PRN (20:18)
[2020-01-02] MEDS: ALPRAZolam 1 MG TABLET PO SCH (20:18)
[2020-01-03] MEDS: Venlafaxine XR (24 HR) 150 MG CAP.ER.24H PO SCH ×2 (08:27→19:44)
[2020-01-03] MEDS: Vitamin E 200 UNIT (90MG) CAPSULE PO SCH (08:27)
[2020-01-03] MEDS: Aspirin 81 MG TAB.CHEW PO SCH (08:28)
[2020-01-03] MEDS: allopurinoL 300 MG TABLET PO SCH (08:28)
[2020-01-03] MEDS: ALPRAZolam 0.5 MG TABLET PO SCH (08:28)
[2020-01-03] MEDS: Lactobacillus 1 EACH CAP.SPRINK PO SCH ×2 (08:28→19:45)
[2020-01-03] MEDS: allopurinoL 100 MG TABLET PO SCH (08:28)
[2020-01-03] MEDS: *HR* Amiodarone 200 MG TABLET PO SCH (08:28)
[2020-01-03] MEDS: Cholecalciferol (D-3) 1,000 UNIT (25MCG) TABLET PO SCH (08:28)
[2020-01-03] MEDS: lisinopriL 20 MG TABLET PO SCH (08:28)
[2020-01-03] MEDS: Apixaban 5 MG TABLET PO SCH ×2 (08:28→19:45)
[2020-01-03] MEDS: Vitamin B Complex/Vit C/Vit E 1 EACH TABLET PO SCH (08:28)
[2020-01-03] MEDS: Furosemide 20 MG TABLET PO SCH ×2 (08:28→17:07)
[2020-01-03] MEDS: Nystatin POWDER 30 GM BOTTLE TP SCH ×2 (09:20→21:04)
[2020-01-03] MEDS: Cefepime HCl 2,000 MG in 0.9 % Sodium Chloride Mini Bag 100 ML IVPB SCH ×2 (11:55→19:42)
[2020-01-03] MEDS: DAPTOmycin 500 MG in 0.9 % Sodium Chloride 100 ML IVPB SCH (14:13)
[2020-01-03] MEDS: ALPRAZolam 1 MG TABLET PO SCH (19:44)
[2020-01-03] MEDS: hydrOXYzine pamoate 25 MG CAPSULE PO PRN (19:45)
[2020-01-03] MEDS: Mirtazapine 15 MG TABLET PO SCH (19:45)
[2020-01-04] MEDS: Cefepime HCl 2,000 MG in 0.9 % Sodium Chloride Mini Bag 100 ML IVPB SCH (04:38)
[2020-01-04 07:28] LABS: Basophils # 0.1 K/mcL (0.0-0.2); Basophils % 0.6 %; Eosinophils % 7.5 %; Hematocrit 27.7 % (35.3-44.9); Hemoglobin 8.7 g/dL (11.5-15.4); Lymphocytes # 2.5 K/mcL (0.6-4.6); Lymphocytes % 18.8 %; Mean Corpuscular HGB Conc 31.4 g/dL (31.6-35.5); Mean Corpuscular Hemoglobin 25.8 pg (28.0-33.3); Mean Corpuscular Volume 82.2 fL (83.0-100.0); Mean Platelet Volume 9.4 fL (9.4-12.4); Monocytes % 7.5 %; Neutrophils # 8.5 K/mcL (1.6-8.9); Platelet Count 497 K/mcL (140-400); Red Blood Count 3.37 M/mcL (3.82-4.97); Red Cell Distribution Width 17.1 % (11.5-14.5); Segmented Neutrophils % 63.6 %; White Blood Count 13.3 K/mcL (4.3-11.1)
[2020-01-04 08:01] LABS: BUN/Creatinine Ratio 23 (6-26); Blood Urea Nitrogen 24 mg/dL (8-23); Calcium 8.4 mg/dL (8.6-10.3); Carbon Dioxide 25 mEq/L (23-29); Chloride 105 mEq/L (98-107); Glucose 88 mg/dL (70-105); Osmolality,Calculated 293 (280-300); Sodium 140 mEq/L (136-145); eGFR For African Americans > 60 (> 60); eGFR For Non-African Americans 51 (> 60)
[2020-01-04] MEDS: Aspirin 81 MG TAB.CHEW PO SCH (08:38)
[2020-01-04] MEDS: Vitamin E 200 UNIT (90MG) CAPSULE PO SCH (08:38)
[2020-01-04] MEDS: allopurinoL 300 MG TABLET PO SCH (08:38)
[2020-01-04] MEDS: Venlafaxine XR (24 HR) 150 MG CAP.ER.24H PO SCH ×2 (08:38→20:46)
[2020-01-04] MEDS: Lactobacillus 1 EACH CAP.SPRINK PO SCH ×2 (08:39→20:46)
[2020-01-04] MEDS: Vitamin B Complex/Vit C/Vit E 1 EACH TABLET PO SCH (08:39)
[2020-01-04] MEDS: allopurinoL 100 MG TABLET PO SCH (08:39)
[2020-01-04] MEDS: ALPRAZolam 0.5 MG TABLET PO SCH (08:39)
[2020-01-04] MEDS: Furosemide 20 MG TABLET PO SCH ×2 (08:39→17:02)
[2020-01-04] MEDS: Apixaban 5 MG TABLET PO SCH ×2 (08:39→21:00)
[2020-01-04] MEDS: Cholecalciferol (D-3) 1,000 UNIT (25MCG) TABLET PO SCH (08:40)
[2020-01-04] MEDS: lisinopriL 20 MG TABLET PO SCH (08:40)
[2020-01-04] MEDS: Nystatin POWDER 30 GM BOTTLE TP SCH ×2 (08:40→21:01)
[2020-01-04] MEDS: *HR* Amiodarone 200 MG TABLET PO SCH (08:42)
[2020-01-04] MEDS ORDERED: Cefepime HCl 2,000 MG in 0.9 % Sodium Chloride Mini Bag 100 ML IVPB SCH ×2 (12:00→16:00)
[2020-01-04] MEDS: DAPTOmycin 500 MG in 0.9 % Sodium Chloride 100 ML IVPB SCH (13:33)
[2020-01-04] MEDS ORDERED: Potassium Chloride Elixir 20 MEQ/15 ML UDC PO ONE (14:02)
[2020-01-04] MEDS: *HR* OxyCODONE/APAP 5/325 TABLET PO PRN (17:29)
[2020-01-04 19:15] VITALS: BP 107/67
[2020-01-04] MEDS: ALPRAZolam 1 MG TABLET PO SCH (20:46)
[2020-01-04] MEDS: Mirtazapine 15 MG TABLET PO SCH (20:46)
== END 2020-01-04 20:58 | disposition short-term general hospital (02) | DRG 945 ==
LOC: INPPIK 15:45
PROVIDERS: ADMIT Family Medicine; ATTEND Family Medicine